=== PATIENT | female | born 1995 | race Native Hawaiian/Other Pacific Islander ===

== ENCOUNTER 2017-06-15 14:31 | Emergency (ER) | payer OTHER ==
[~2017-06-15] VITALS: Ht 162.6 cm; Wt 66.0 kg
[2017-06-15 14:42] VITALS: BP 128/71; PULSE 99; RESP 16; TEMP 98.5; O2SAT 100
[2017-06-15] MEDS ORDERED: FLUORESCEIN SOD 1 MG STRIP EACH EYE ONE (17:00)
[2017-06-15] MEDS ORDERED: PROPARACAINE HCL 0.5% OPHT SOLN 15 ML BTL EACH EYE ONE (17:00)
[2017-06-15] MEDS ORDERED: MOXIFLOXACIN 0.5% OPHT SOLN 3 ML BTL EACH EYE ONE (17:15)
[2017-06-15] MEDS ORDERED: VIGA0.5D EACH EYE (17:20)
--- NOTE | 2017-06-15 17:20 | PD ---
HPI Chief Complaint: Foreign Body Time Seen by Provider: 16:55 Travel History International Travel<30 days: No Contact w/Intl Traveler<30days: No Traveled to known affect area: No History of Present Illness HPI 21-year-old female here for evaluation of bilateral eye pain and inability to open her eyes after leaving her contact lenses in her eyes overnight. She usually never does this. She removed the contacts this morning. When she forcefully opens her eyes she states that her vision seems clouded. Symptoms are moderate to severe, constant. [facility] Past Medical History Medical History: Denies Significant Hx ?: Not Past Surgical History Surgical History: No Previous Surgery Social History Alcohol Use: No Tobacco Use: No Substance Use: No Allergies-Medications (Allergen,Severity, Reaction): Coded Allergies: penicillin G (Verified Allergy, Severe, Rash, 06/15/17) Review of Systems Except as stated in HPI: all other systems reviewed are Neg Physical Exam Narrative GENERAL: Well-developed, well-nourished, comfortable, no apparent distress. SKIN: Focused skin assessment warm/dry. HEAD: Atraumatic. Normocephalic. EYES: Pupils equal, round, 3 mm, reactive to light. Moderate scleral injection bilaterally. Eyelids everted and there are no foreign bodies. Obvious corneal abrasions to bilateral corneas centrally even before fluorescein stain. Fluorescein stain confirms bilateral large corneal abrasions, no dendritic lesions, negative Kristan sign. Mild periorbital edema without warmth erythema. EOMI. No proptosis. ENT: No nasal bleeding or discharge. Mucous membranes pink and moist. NECK: Trachea midline. No JVD. CARDIOVASCULAR: Regular rate and rhythm. NEUROLOGICAL: Awake and alert. No obvious cranial nerve deficits. Motor grossly within normal limits. Normal speech. PSYCHIATRIC: Appropriate mood and affect; insight and judgment normal. Data Data Last Documented VS Vital Signs Date Time Temp Pulse Resp B/P (MAP) Pulse Ox O2 Delivery O2 Flow Rate FiO2 06/15/17 14:42 98.5 99 16 128/71 (90) 100 Orders Orders Proparacaine 0.5% Opth Soln (Alcaine 0.5 (06/15/17 17:00) Fluorescein Strip (Mgiin-X-Hujnss A.T.) (06/15/17 17:00) Moxifloxacin 0.5% Opht Soln (Vigamox 0.5 (06/15/17 17:15) [facility] Medical Decision Making Medical Screen Exam Complete: Yes Emergency Medical Condition: Yes Differential Diagnosis Corneal abrasions Narrative Course This is a 21-year-old female who has bilateral corneal abrasions after leaving her contact lenses in overnight. See physical exam for eye exam findings. Plan is to start her on Vigamox eyedrops and have her follow-up with an revenue stamper in the next 1-2 days. She states that she is from [place] and is in school there. I advised that she should not wear her contact lenses for at least 2 weeks. She was informed on when to return to the emergency department. She verbalizes understanding and agreement with plan. Diagnosis Primary Impression: Bilateral corneal abrasions Qualified Codes: S05.01XA - Injury of conjunctiva and corneal abrasion without foreign body, right eye, initial encounter; S05.02XA - Injury of conjunctiva and corneal abrasion without foreign body, left eye, initial encounter Referrals: Minerva Camarillo MD [address] Additional Instructions: Follow-up with revenue stamper Dr. Camarillo or an revenue stamper of your choice in the next 1-2 days. Use antibiotic eyedrops as prescribed. Return to the emergency department for worsening symptoms or any other concerns. Scripts Moxifloxacin Opth Drops (Vigamox Opth Drops) 0.5 % Soln 1 DROP EACH EYE TID for Infection, #1 BOTTLE 0 Refills Prov: Geovanny Bourgeois MD 06/15/17 Disposition: 01 DISCHARGE HOME Condition: Stable Geovanny Bourgeois MD Jun 15, 2017 17:20
[2017-06-15] MEDS ORDERED: ACETAMINOPHEN 325 MG TAB PO ONE (17:30)
[2017-06-15 18:00] VITALS: BP 124/72
== END 2017-06-15 18:01 | disposition home or self-care (01) ==
LOC: NEPD 14:31
DX: H18.823 Corneal disorder due to contact lens, bilateral (principal)
CPT/HCPCS: 99283